=== PATIENT | male | born 1960 | race Caucasian/White ===

== ENCOUNTER 2021-04-24 07:23 | Outpatient (REF) | payer BC, SELFPAY ==
[2021-04-24 08:34] LABS: Mean Corpuscular Hemoglobin 32.9 pg (27.0-33.0); Mean Corpuscular Volume 95.6 fL (80-98); Mean Platelet Volume 11.4 fL (9.4-12.4)
[2021-04-24 08:36] LABS: Basophils Percent Auto 0.4 % (0-2); Eosinophils Absolute Auto 0.1 X10*3/uL (0.0-0.4); Hematocrit 47.3 % (42-52); Hemoglobin 16.3 g/dl (14.0-18.0); Imm Gran Abs Auto 0.01 X10*3/uL (0.00-0.03); Imm Gran Pct Auto 0.2 % (0.0-0.4); Lymphocytes Absolute Auto 1.1 X10*3/uL (1.2-4.9); Lymphocytes Percent Auto 25.1 % (20-40); Mean Corpuscular HGB Conc 34.5 g/dl (31.0-36.0); Monocytes Absolute Auto 0.4 X10*3/uL (0.1-1.2); Monocytes Percent Auto 9.4 % (2-11); Neutrophils Absolute Auto 2.8 X10*3/uL (2.0-8.3); Neutrophils Percent Auto 62.9 % (45-73); Platelet Count 133 X10*3/uL (160-400); Red Blood Count 4.95 X10*6/uL (4.60-5.80); White Blood Count 4.5 X10*3/uL (4.8-10.8)
[2021-04-24 08:52] LABS: Alanine Aminotransferase 25 U/L (0-40); Albumin Level 4.3 g/dL (3.5-5.0); Alkaline Phosphatase 70 U/L (39-117); Anion Gap 13 (12-20); Aspartate Amino Transferase 20 U/L (5-37); Bilirubin Direct 0.3 mg/dL (0.0-0.5); Bilirubin Total 0.8 mg/dL (0.0-1.0); Blood Urea Nitrogen 15 mg/dL (9-16); Carbon Dioxide 25 mmol/L (22-29); Chloride 107 mmol/L (96-108); Cholesterol 140 mg/dL; Estimated Glomerular Filt Rate > 60; Glucose Fasting 185 mg/dL (60-99); HDL Cholesterol 31 mg/dL; LDL Cholesterol Calculated 83 mg/dl; Potassium 4.2 mmol/L (3.3-5.1); Sodium 141 mmol/L (135-145); Total Protein 6.8 g/dL (6.5-8.0); Triglycerides 130 mg/dL
[2021-04-24 09:18] LABS: Prostate Specific Antigen Scr 2.29 ng/mL (<0.05-4.0)
[2021-04-24 12:17] LABS: Estimated Average Glucose 114 mg/dL; Hemoglobin A1c % 5.6 %
== END 2021-04-24 07:24 | disposition home or self-care (01) ==
LOC: HO.LAB 07:23
PROVIDERS: PCP Internal Medicine; Visit Provider Internal Medicine
DX: E11.9 Type 2 diabetes mellitus without complications (principal); R53.83 Other fatigue; E78.5 Hyperlipidemia, unspecified; Z12.5 Encounter for screening for malignant neoplasm of prostate
CPT/HCPCS: 36415; 80051; 80061; 80076; 82565; 82947; 83036; 84153; 84520; 85025

== ENCOUNTER 2021-07-29 07:12 | Day surgery (SDC) | payer BC, SELFPAY ==
[2021-07-23 09:12] VITALS: BMI 24.5
--- NOTE | 2021-07-28 12:49 | P.CONAN_ITS ---
Documented by User: Savi Montenegro NP 07/28/21 12:50 HPI - Anesthesia Eval Consult details Narrative: 60yo M for ?Colonoscopy [facility] Past Medical History Medical History (Updated 07/23/21 @ 09:11 by Cecilia Valdivia, VERONICA) History of seizures HTN (hypertension) Irritable bowel syndrome with diarrhea Reactive hypoglycemia Surgical History Surgical History (Updated 07/23/21 @ 09:09 by Cecilia Valdivia, RN) Hx of colonoscopy Social History Social History Patient Tobacco Use Status: Never used Tobacco Use of substances other than those prescribed or required for medical reasons: No Are you DNR?: No Advance Directives: No Advance Directives Information Provided: Yes Meds Allergies Allergy/AdvReac Type Severity Reaction Status Date / Time garlic Allergy Unknown Verified 07/23/21 09:10 Seasonal Allergies Allergy Unknown Verified 07/23/21 09:10 Home Medications Medication Instructions Recorded Confirmed Last Taken Type metoprolol succinate 50 mg 1 tab PO DAILY 07/23/21 07/23/21 07/29/21 History tablet,extended release 24 hr Exam Exam Date and Time: July 28, 2021 1249 Height,Weight and Vital Signs: Height 5 ft 10 in Weight 77.564 kg Pertinent Lab Results Pertinent Lab Results: Laboratory Tests 04/24/21 04/24/21 07:30 07:30 WBC 4.5 L Hgb 16.3 Hct 47.3 Plt Count 133 L Sodium 141 Potassium 4.2 Chloride 107 Carbon Dioxide 25 BUN 15 Creatinine 1.02 Assessment and Plan Assessment Anesthesia Assessment: Chart Reviewed Documented by User: Tracey Alicea MD 07/29/21 08:18 [facility] Active Problems Active Problems: HTN Past Medical History Medical History (Updated 07/23/21 @ 09:11 by Cecilia Valdivia, VERONICA) History of seizures HTN (hypertension) Irritable bowel syndrome with diarrhea Reactive hypoglycemia Family History Family history of problems with anesthesia: No Surgical History Surgical History (Updated 07/23/21 @ 09:09 by Cecilia Valdivia RN) Hx of colonoscopy History of Problems with Anesthesia: No Social History Social History Patient Tobacco Use Status: Never used Tobacco Use of substances other than those prescribed or required for medical reasons: No Are you DNR?: No Advance Directives: No Advance Directives Information Provided: Yes Meds Allergies Allergy/AdvReac Type Severity Reaction Status Date / Time garlic Allergy Unknown Verified 07/23/21 09:10 Seasonal Allergies Allergy Unknown Verified 07/23/21 09:10 Home Medications Medication Instructions Recorded Confirmed Last Taken Type metoprolol succinate 50 mg 1 tab PO DAILY 07/23/21 07/23/21 07/29/21 History tablet,extended release 24 hr Exam Height,Weight and Vital Signs: Height 5 ft 10 in Weight 77.564 kg Vital Signs Temp Pulse Resp BP Pulse Ox 07/29/21 07:25 97.6 F 82 16 128/90 H 98 Airway Mallampati Class: I TM Dist: >3cm Neck ROM: Full Heart: RRR Lungs: CTAB Assessment and Plan Assessment Anesthesia Assessment: Anesthesia Plan Discussed Final Anesthetic Review Family History of Problems with Anesthesia: No History of Problems with Anesthesia: No NPO: Yes ASA Class: II Final Preanesthetic Review: No Changes in Pt Med Stat, Meds/Allgs Chart Reviewed, Consent Obtained/Reviewed and Anes Risks/Benef Reviewed Patient Risk: Low Procedure Risk: Low Assessment/Block/Sedation in SS: Assess/Block/Sedation-SS Anesthetic Plan Anesthetic Plan: MAC: Disposition: Standard PACU
[2021-07-29 07:25] VITALS: BP 128/90; PULSE 82; RESP 16; TEMP 36.4; O2SAT 98
[2021-07-29] MEDS: Lactated Ringers 1,000 ML 100 ML IVCONT (07:39)
--- NOTE | 2021-07-29 08:20 | MHC.SHP ---
Pre-Procedural Eval Section A Date of Service: 07/29/21 The patient is an INPATIENT: No Changes since office visit: No Cold of Flu in the past 2 weeks, No New Medical Problems, No Changes in Medication and No Patient answered all questions The History & Physical has been completed within 30 days and I have reviewed it.: Yes Section B Chief Complaint: screening Allergies: Allergies Allergy/AdvReac Type Severity Reaction Status Date / Time garlic Allergy Unknown Verified 07/23/21 09:10 Seasonal Allergies Allergy Unknown Verified 07/23/21 09:10 Plan I have reviewed the history and physical and performed a pertinent physical examination on my patient. No changes have occurred unless specified.
[2021-07-29 09:05] VITALS: BP 94/54; PULSE 71; RESP 16; TEMP 36.1; O2SAT 96
--- NOTE | 2021-07-29 09:05 | PM.OP ---
Brief Operative Note Date of Service: 07/29/21 Pre-op diagnosis: screening Post-op diagnosis: same (colon polyp) Procedure: colonoscopy Surgeon: Alf Ortiz Anesthesia: MAC Was an Admitted Attorneys used for this Procedure?: No Estimated blood loss (mL): 0 Pathology: other (polyp 60 cm) Condition: stable Disposition: PACU
[2021-07-29 09:20] VITALS: BP 105/73; PULSE 62; RESP 16; O2SAT 99
[2021-07-29 09:35] VITALS: BP 131/84; PULSE 57; RESP 18; O2SAT 97
[2021-07-29 09:44] VITALS: TEMP 36.2
--- NOTE | 2021-07-29 10:04 | OP_ITS ---
SURGEON: Alf Ortiz MD INDICATIONS: Colon cancer screening. PREOPERATIVE DIAGNOSIS: POSTOPERATIVE DIAGNOSIS: PROCEDURE PERFORMED: Colonoscopy to the terminal ileum with snare polypectomy. ESTIMATED BLOOD LOSS: COMPLICATIONS: ANESTHESIA: ASSISTANTS: SPECIMENS: MEDICATIONS: Monitored anesthesia care. DESCRIPTION OF PROCEDURE: History and physical performed. The risks and benefits of the procedure were explained to the patient. Informed consent was obtained. The patient was placed in the left lateral decubitus position. A digital rectal exam was performed and was found to be normal. The Olympus pediatric video colonoscope was introduced into the rectum and advanced to the cecum without difficulty. The cecum was identified by transillumination, palpation, and identification of ileocecal valve. Examination was performed and the scope was removed. He tolerated the procedure well and was taken to recovery area in stable condition. FINDINGS: The terminal ileum was normal. The visualized colonic mucosa was normal. The quality of the prep was good. A single polyp was identified measuring approximately 8 mm. This was removed with a snare and recovered via suction. The polyp was located at 60 cm. No other polyps were seen. Retroflexed examination showed moderate-sized internal hemorrhoids. IMPRESSION: Colon polyp. RECOMMENDATION: Follow up the biopsy results. MD JAMILA Calabrese/JAYDEN / [id number]
== END 2021-07-29 10:28 | disposition home or self-care (01) ==
PROVIDERS: PCP Internal Medicine; Visit Provider Internal Medicine Gastroenterology
PROC: 0DJD8ZZ Inspection of Lower Intestinal Tract, Via Natural or Artificial Opening Endoscopic (ICD-10-PCS; CPT 45378; principal; 2021-07-29 08:20)
DX: Z12.11 Encounter for screening for malignant neoplasm of colon (principal); D12.4 Benign neoplasm of descending colon; K58.0 Irritable bowel syndrome with diarrhea; I10 Essential (primary) hypertension; E16.1 Other hypoglycemia; Z86.69 Personal history of other diseases of the nervous system and sense organs; Z79.899 Other long term (current) drug therapy
CPT/HCPCS: 45385; 88305

== ENCOUNTER 2021-09-15 11:19 | Outpatient (REF) | payer BC, SELFPAY ==
[2021-09-15 12:56] LABS: COVID-19 Test Negative (Negative); IDNOW Serial# 55D5AD1C
== END 2021-09-15 11:20 | disposition home or self-care (01) ==
LOC: HO.LAB 11:19
PROVIDERS: Visit Provider Internal Medicine
DX: Z20.822 Contact with and (suspected) exposure to COVID-19 (principal)
CPT/HCPCS: 36415; 87635; C9803

== ENCOUNTER 2021-11-07 16:58 | Outpatient (REF) | payer BC, SELFPAY ==
--- NOTE | ~2021-11-07 | XR_ITS ---
EXAMINATION: XR SHOULDER, RIGHT CLINICAL INFORMATION: Shoulder pain. COMPARISON: None TECHNIQUE: AP external rotation, Grashey, scapular Y, and axillary views of the right shoulder. FINDINGS: No fracture. Glenohumeral and acromioclavicular alignment is anatomic with normal joint space. Mild acromioclavicular arthritis. Mild inferior glenoid spurring. No abnormal soft tissue calcifications. XR/XR shoulder RT min 2V IMPRESSION: No acute findings. Mild glenohumeral and AC joint arthritis.
== END 2021-11-07 16:59 | disposition home or self-care (01) ==
LOC: HO.XRAY 16:58
PROVIDERS: Visit Provider Internal Medicine
DX: M25.511 Pain in right shoulder (principal)
CPT/HCPCS: 73030

== ENCOUNTER 2022-05-06 07:03 | Outpatient (REF) | payer BC, SELFPAY ==
[2022-05-06 07:21] LABS: MANUAL DIFF FLAG NO
[2022-05-06 07:43] LABS: Estimated Average Glucose 108 mg/dL; Hemoglobin A1c % 5.4 %
[2022-05-06 08:05] LABS: Alanine Aminotransferase 30 U/L (0-40); Albumin Level 4.4 g/dL (3.5-5.0); Alkaline Phosphatase 67 U/L (39-117); Anion Gap 12 (12-20); Aspartate Amino Transferase 23 U/L (5-37); Bilirubin Direct 0.4 mg/dL (0.0-0.5); Bilirubin Total 1.2 mg/dL (0.0-1.0); Blood Urea Nitrogen 18 mg/dL (9-16); Carbon Dioxide 29 mmol/L (22-29); Chloride 106 mmol/L (96-108); Cholesterol 153 mg/dL; Estimated Glomerular Filt Rate > 60; Glucose Fasting 103 mg/dL (60-99); HDL Cholesterol 41 mg/dL; LDL Cholesterol Calculated 94 mg/dl; Potassium 4.3 mmol/L (3.3-5.1); Sodium 143 mmol/L (135-145); Total Protein 6.8 g/dL (6.5-8.0); Triglycerides 93 mg/dL
[2022-05-06 08:07] LABS: Basophils Percent Auto 0.4 % (0-2); Eosinophils Absolute Auto 0.1 X10*3/uL (0.0-0.4); Eosinophils Percent Auto 2.5 % (0-4); Hematocrit 49.7 % (42.0-52.0); Imm Gran Abs Auto 0.03 X10*3/uL (0.00-0.03); Imm Gran Pct Auto 0.5 % (0.0-0.4); Lymphocytes Absolute Auto 1.3 X10*3/uL (1.2-4.9); Lymphocytes Percent Auto 23.7 % (20-40); Mean Corpuscular HGB Conc 34.2 g/dl (31.0-36.0); Mean Corpuscular Hemoglobin 32.8 pg (27.0-33.0); Mean Corpuscular Volume 95.9 fL (80.0-98.0); Monocytes Absolute Auto 0.7 X10*3/uL (0.1-1.2); Monocytes Percent Auto 12.4 % (2-11); Neutrophils Absolute Auto 3.4 x10*3/uL (2.0-8.3); Neutrophils Percent Auto 60.5 % (45-73); Platelet Count 133 X10*3/uL (160-400); Red Blood Count 5.18 X10*6/uL (4.60-5.80); Red Cell Distribution Width 12.6 % (11.0-16.0); White Blood Count 5.7 X10*3/uL (4.8-10.8)
[2022-05-06 08:29] LABS: Prostate Specific Antigen 1.94 ng/mL (<0.05-4.0)
== END 2022-05-06 07:04 | disposition home or self-care (01) ==
LOC: HO.LAB 07:03
PROVIDERS: Absent Provider Internal Medicine; PCP Internal Medicine; Visit Provider Internal Medicine
DX: Z00.00 Encounter for general adult medical examination without abnormal findings (principal); Z12.5 Encounter for screening for malignant neoplasm of prostate; E78.5 Hyperlipidemia, unspecified; R53.83 Other fatigue
CPT/HCPCS: 36415; 80051; 80061; 80076; 82565; 82947; 83036; 84153; 84520; 85025; 86003

== ENCOUNTER 2023-05-21 07:55 | Outpatient (REF) | payer OTHER, SELFPAY ==
[2023-05-21 08:31] LABS: MANUAL DIFF FLAG NO
[2023-05-21 09:41] LABS: Basophils Percent Auto 0.4 % (0-2); Eosinophils Absolute Auto 0.1 X10*3/uL (0.0-0.4); Eosinophils Percent Auto 1.5 % (0-4); Hematocrit 49.6 % (42.0-52.0); Hemoglobin 17.1 g/dl (14.0-18.0); Imm Gran Abs Auto 0.01 X10*3/uL (0.00-0.03); Imm Gran Pct Auto 0.2 % (0.0-0.4); Lymphocytes Absolute Auto 1.1 X10*3/uL (1.2-4.9); Lymphocytes Percent Auto 20.2 % (20-40); Mean Corpuscular HGB Conc 34.5 g/dl (31.0-36.0); Mean Corpuscular Hemoglobin 33.3 pg (27.0-33.0); Mean Corpuscular Volume 96.5 fL (80.0-98.0); Mean Platelet Volume 11.4 fL (9.4-12.4); Monocytes Absolute Auto 0.5 X10*3/uL (0.1-1.2); Monocytes Percent Auto 8.8 % (2-11); Neutrophils Absolute Auto 3.6 x10*3/uL (2.0-8.3); Neutrophils Percent Auto 68.9 % (45-73); Platelet Count 143 X10*3/uL (160-400); Red Blood Count 5.14 X10*6/uL (4.60-5.80); Red Cell Distribution Width 12.1 % (11.0-16.0); White Blood Count 5.2 X10*3/uL (4.8-10.8)
[2023-05-21 10:20] LABS: Anion Gap 11 (12-20); Blood Urea Nitrogen 13 mg/dL (9-16); Carbon Dioxide 26 mmol/L (22-29); Chloride 109 mmol/L (96-108); Cholesterol 150 mg/dL (<200); Estimated Glomerular Filt Rate > 60; Glucose Fasting 110 mg/dL (60-99); HDL Cholesterol 35 mg/dL (>40); LDL Cholesterol Calculated 99 mg/dL (<100); Potassium 4.1 mmol/L (3.3-5.1); Sodium 142 mmol/L (135-145); Triglycerides 81 mg/dL (<150)
[2023-05-21 10:39] LABS: Prostate Specific Antigen 2.14 ng/mL (<0.05-4.0)
[2023-05-24 11:28] LABS: Alanine Aminotransferase 32 U/L (0-40); Albumin Level 4.4 g/dL (3.5-5.0); Alkaline Phosphatase 65 U/L (39-117); Aspartate Amino Transferase 24 U/L (5-37); Bilirubin Direct 0.3 mg/dL (0.0-0.5); Bilirubin Total 0.8 mg/dL (0.0-1.0); Total Protein 7.1 g/dL (6.5-8.0)
== END 2023-05-21 07:56 | disposition home or self-care (01) ==
LOC: HO.LAB 07:55
PROVIDERS: PCP Internal Medicine; Visit Provider Internal Medicine
DX: E78.5 Hyperlipidemia, unspecified (principal); R53.83 Other fatigue; Z12.5 Encounter for screening for malignant neoplasm of prostate
CPT/HCPCS: 36415; 80051; 80061; 80076; 82565; 82947; 84153; 84520; 85025

== ENCOUNTER 2023-05-29 08:03 | Outpatient (REF) | payer OTHER, SELFPAY ==
--- NOTE | ~2023-05-29 | XR_ITS ---
EXAMINATION: XR RIGHT ANKLE, LEFT ANKLE CLINICAL INFORMATION: Limited dorsiflexion right ankle in comparison to left ankle COMPARISON: None TECHNIQUE: 3 views of each ankle. FINDINGS: Right ankle: Ankle joint effusion with soft tissue swelling. Faint calcifications are possibly vascular. Small plantar calcaneal spur. No displaced fracture. Left ankle: Ankle joint effusion with soft tissue swelling. Faint calcifications are possibly vascular. Tiny plantar calcaneal spur. No displaced fracture. XR/XR ankle RT min 3V IMPRESSION: Bilateral ankle joint effusion. Small right and tiny left plantar calcaneal spurs. No displaced fracture. Recommend follow-up imaging in 10-14 days if fracture is suspected.
--- NOTE | ~2023-05-29 | XR_ITS ---
EXAMINATION: XR RIGHT ANKLE, LEFT ANKLE CLINICAL INFORMATION: Limited dorsiflexion right ankle in comparison to left ankle COMPARISON: None TECHNIQUE: 3 views of each ankle. FINDINGS: Right ankle: Ankle joint effusion with soft tissue swelling. Faint calcifications are possibly vascular. Small plantar calcaneal spur. No displaced fracture. Left ankle: Ankle joint effusion with soft tissue swelling. Faint calcifications are possibly vascular. Tiny plantar calcaneal spur. No displaced fracture. XR/XR ankle LT min 3V IMPRESSION: Bilateral ankle joint effusion. Small right and tiny left plantar calcaneal spurs. No displaced fracture. Recommend follow-up imaging in 10-14 days if fracture is suspected.
== END 2023-05-29 08:04 | disposition home or self-care (01) ==
LOC: HO.XRAY 08:03
PROVIDERS: PCP Internal Medicine; Visit Provider Internal Medicine
DX: M25.871 Other specified joint disorders, right ankle and foot (principal)
CPT/HCPCS: 73610

== ENCOUNTER 2023-06-11 14:48 | Outpatient (REF) | payer OTHER, SELFPAY ==
--- NOTE | ~2023-06-11 | XR_ITS ---
EXAMINATION: XR ANKLE, RIGHT CLINICAL INFORMATION: Question occult fracture. COMPARISON: Radiographs dated 06/01/2023. TECHNIQUE: AP, lateral, and mortise views of the right ankle. FINDINGS: Bony alignment and mineralization are normal. The ankle mortise is intact. No fracture, dislocation or right ankle joint effusion is seen. Boehler's angle is normal. There is a small plantar calcaneal spur. No erosions. No focal soft tissue swelling, gas or foreign body is seen. There is minimal atherosclerotic calcification of the dorsalis pedis artery. XR/XR ankle RT min 3V IMPRESSION: 1. No occult fracture is seen. There is no dislocation or right ankle joint effusion. 2. There is a tiny right calcaneal plantar spur. EXAMINATION: XR ANKLE, LEFT CLINICAL INFORMATION: Question occult fracture. COMPARISON: Radiographs dated 06/01/2023. TECHNIQUE: AP, lateral, and mortise views of the left ankle. FINDINGS: Bony alignment and mineralization are normal. The ankle mortise is intact. No fracture, dislocation or left ankle joint effusion is seen. Boehler's angle is normal. There is no calcaneal spur. No erosions. No focal soft tissue swelling, gas or foreign body is seen. There is mild atherosclerotic calcification of the dorsalis pedis artery. IMPRESSION: No occult fracture is seen. There is no dislocation or left ankle joint effusion.
--- NOTE | ~2023-06-11 | XR_ITS ---
EXAMINATION: XR ANKLE, RIGHT CLINICAL INFORMATION: Question occult fracture. COMPARISON: Radiographs dated 06/01/2023. TECHNIQUE: AP, lateral, and mortise views of the right ankle. FINDINGS: Bony alignment and mineralization are normal. The ankle mortise is intact. No fracture, dislocation or right ankle joint effusion is seen. Boehler's angle is normal. There is a small plantar calcaneal spur. No erosions. No focal soft tissue swelling, gas or foreign body is seen. There is minimal atherosclerotic calcification of the dorsalis pedis artery. XR/XR ankle LT min 3V IMPRESSION: 1. No occult fracture is seen. There is no dislocation or right ankle joint effusion. 2. There is a tiny right calcaneal plantar spur. EXAMINATION: XR ANKLE, LEFT CLINICAL INFORMATION: Question occult fracture. COMPARISON: Radiographs dated 06/01/2023. TECHNIQUE: AP, lateral, and mortise views of the left ankle. FINDINGS: Bony alignment and mineralization are normal. The ankle mortise is intact. No fracture, dislocation or left ankle joint effusion is seen. Boehler's angle is normal. There is no calcaneal spur. No erosions. No focal soft tissue swelling, gas or foreign body is seen. There is mild atherosclerotic calcification of the dorsalis pedis artery. IMPRESSION: No occult fracture is seen. There is no dislocation or left ankle joint effusion.
== END 2023-06-11 14:49 | disposition home or self-care (01) ==
LOC: HO.XRAY 14:48
PROVIDERS: PCP Internal Medicine; Visit Provider Internal Medicine
DX: M77.31 Calcaneal spur, right foot (principal)
CPT/HCPCS: 73610

== ENCOUNTER 2024-09-26 07:06 | Outpatient (REF) | payer MEDICARE, SELFPAY ==
[2024-09-26 07:19] LABS: MANUAL DIFF FLAG NO
[2024-09-26 08:23] LABS: Basophils Percent Auto 0.4 % (0-2); Eosinophils Absolute Auto 0.2 X10*3/uL (0.0-0.4); Eosinophils Percent Auto 2.7 % (0-4); Hematocrit 48.5 % (42.0-52.0); Hemoglobin 16.6 g/dl (14.0-18.0); Imm Gran Abs Auto 0.02 X10*3/uL (0.00-0.03); Imm Gran Pct Auto 0.4 % (0.0-0.4); Lymphocytes Absolute Auto 1.4 X10*3/uL (1.2-4.9); Lymphocytes Percent Auto 25.3 % (20-40); Mean Corpuscular HGB Conc 34.2 g/dl (31.0-36.0); Mean Corpuscular Hemoglobin 32.5 pg (27.0-33.0); Mean Corpuscular Volume 95.1 fL (80.0-98.0); Mean Platelet Volume 10.9 fL (9.4-12.4); Monocytes Absolute Auto 0.7 X10*3/uL (0.1-1.2); Monocytes Percent Auto 12.2 % (2-11); Neutrophils Absolute Auto 3.4 x10*3/uL (2.0-8.3); Platelet Count 153 X10*3/uL (160-400); Red Cell Distribution Width 12.1 % (11.0-16.0); White Blood Count 5.7 X10*3/uL (4.8-10.8)
[2024-09-26 08:50] LABS: Alanine Aminotransferase 36 U/L (0-40); Albumin Level 4.3 g/dL (3.5-5.0); Alkaline Phosphatase 65 U/L (39-117); Anion Gap 10 (12-20); Aspartate Amino Transferase 32 U/L (5-37); Bilirubin Total 0.7 mg/dL (0.0-1.0); Blood Urea Nitrogen 18 mg/dL (9-16); Carbon Dioxide 29 mmol/L (22-29); Chloride 107 mmol/L (96-108); Cholesterol 128 mg/dL (<200); Estimated Glomerular Filt Rate > 60; Glucose Fasting 95 mg/dL (60-99); HDL Cholesterol 35 mg/dL (>40); LDL Cholesterol Calculated 83 mg/dL (<100); Potassium 4.2 mmol/L (3.3-5.1); Sodium 142 mmol/L (135-145); Triglycerides 50 mg/dL (<150)
== END 2024-09-26 07:07 | disposition home or self-care (01) ==
LOC: HO.LAB 07:06
PROVIDERS: PCP Internal Medicine; Visit Provider Internal Medicine
DX: Z00.00 Encounter for general adult medical examination without abnormal findings (principal); E78.5 Hyperlipidemia, unspecified; R53.83 Other fatigue; Z12.5 Encounter for screening for malignant neoplasm of prostate
CPT/HCPCS: 36415; 80053; 80061; 84153; 85025